=== PATIENT | female | born 1940 | race Caucasian/White ===

== ENCOUNTER 2021-05-17 16:03 | Day surgery (SDCO) | payer MEDICARE, OTHER ==
[~2021-05-17] VITALS: Ht 154.9 cm; Wt 73.1 kg
[~2021-05-17 16:03] MED LIST: ALLOPURINOL 10100 MG PO; ASPIRIN EC81 MG PO; BENTYL10 MG PO; CIPRO500 MG PO; ELAVIL25 MG PO; LASIX40 MG PO; METRONIDAZOLE500 MG PO; NABUMETONE750 MG PO; ONDANSETRON ODT4 MG SL; PRILOSEC20 MG PO; PRINIVIL10 MG PO; PRINIVIL20 MG PO; SYNTHROID88 MCG PO; ZOFRAN ODT4 MG SL; ZOFRAN4 MG PO
[2021-05-17 17:28] LABS: BASOPHIL 0.7 % (0-2); EOSINOPHIL 1.6 % (0-7); HCT 35.3 % (37.0-47.0); HGB 12.7 g/dl (12.5-16.0); LYMPHOCYTE 24.3 % (15-48); MCH 32.1 pg (25.0-31.0); MCV 89.1 fL (78.0-100.0); MONOCYTE 13.8 % (0-12); MPV 10.3 fL (6.0-9.5); NEUTROPHIL 59.3 % (41-80); NRBC 0; PLT 72 K/uL (150-400); RBC 3.96 M/uL (4.20-5.40); WBC 3.1 K/uL (4.0-10.5)
[2021-05-17 17:44] LABS: ALBUMIN 3.6 g/dL (3.4-5.0); BILIRUBIN - TOTAL 1.4 mg/dL (0.2-1.0); BUN/CREAT RATIO (CALC) 18.3 RATIO; CREATININE 0.71 mg/dL (0.51-0.95); GLOBULIN (CALCULATION) 3.7 g/dL; POTASSIUM 4.2 mmol/L (3.5-5.1); TOTAL PROTEIN 7.3 g/dL (6.4-8.2)
[2021-05-17 19:45] LABS: BILIRUBIN NEGATIVE (NEGATIVE); BLOOD NEGATIVE Ery/uL (NEGATIVE); CLARITY CLEAR (CLEAR); COLOR YELLOW (YELLOW); GLUCOSE (U) NORMAL (NORMAL); LEUKOCYTES NEGATIVE Leu/uL (NEGATIVE); NITRITE NEGATIVE (NEGATIVE); PROTEIN NEGATIVE (NEGATIVE); UROBILINOGEN 0.2 mg/dL (0.2-1.0); pH 6.5 (5.0-9.0)
[2021-05-17] MEDS ORDERED: CIPRO250 MG PO (21:35)
[2021-05-18 06:15] LABS: EOSINOPHIL 1.3 % (0-7); HCT 32.1 % (37.0-47.0); HGB 11.5 g/dl (12.5-16.0); LYMPHOCYTE 36.1 % (15-48); MCH 32.1 pg (25.0-31.0); MCHC 35.8 g/dL (32.0-36.0); MCV 89.7 fL (78.0-100.0); MONOCYTE 11.8 % (0-12); MPV 10.3 fL (6.0-9.5); NEUTROPHIL 49.8 % (41-80); NRBC 0; RBC 3.58 M/uL (4.20-5.40); WBC 3.1 K/uL (4.0-10.5)
[2021-05-18 06:19] LABS: PLT 71 K/uL (150-400)
[2021-05-18 06:23] LABS: INR 1.5 (0.9-1.2); PROTHROMBIN TIME 17.4 SECONDS (11.8-13.4); PTT 35.4 SECONDS (24.4-34.7)
[2021-05-18 06:35] LABS: BILIRUBIN - TOTAL 1.1 mg/dL (0.2-1.0); BUN/CREAT RATIO (CALC) 13.6 RATIO; CREATININE 0.66 mg/dL (0.51-0.95); GLOBULIN (CALCULATION) 3.6 g/dL; POTASSIUM 4.1 mmol/L (3.5-5.1); TOTAL PROTEIN 6.6 g/dL (6.4-8.2)
[2021-05-19 07:12] LABS: BASOPHIL 0.7 % (0-2); EOSINOPHIL 2.2 % (0-7); HCT 30.6 % (37.0-47.0); HGB 10.6 g/dl (12.5-16.0); LYMPHOCYTE 37.1 % (15-48); MCH 31.7 pg (25.0-31.0); MCHC 34.6 g/dL (32.0-36.0); MCV 91.6 fL (78.0-100.0); MONOCYTE 13.5 % (0-12); MPV 10.1 fL (6.0-9.5); NEUTROPHIL 46.5 % (41-80); NRBC 0; RBC 3.34 M/uL (4.20-5.40); RDW 13.3 % (11.5-14.0); WBC 2.7 K/uL (4.0-10.5)
[2021-05-19 07:14] LABS: PLT 64 K/uL (150-400)
[2021-05-19 07:21] LABS: INR 1.53 (0.9-1.2); PROTHROMBIN TIME 17.7 SECONDS (11.8-13.4); PTT 35.7 SECONDS (24.4-34.7)
[2021-05-19 07:39] LABS: ALBUMIN 2.8 g/dL (3.4-5.0); BUN/CREAT RATIO (CALC) 12.9 RATIO; CREATININE 0.7 mg/dL (0.51-0.95); GLOBULIN (CALCULATION) 3.3 g/dL; MAGNESIUM 1.6 mg/dL (1.8-2.4); TOTAL PROTEIN 6.1 g/dL (6.4-8.2)
== END 2021-05-19 13:25 | disposition home or self-care (01) ==
LOC: FER 16:03 → FMS 20:23
PROVIDERS: Emergency Medicine; Nurse Practitioner; ADMIT Internal Medicine
DX: K80.70 Calculus of gallbladder and bile duct without cholecystitis without obstruction (principal); K74.60 Unspecified cirrhosis of liver; K76.6 Portal hypertension; D61.818 Other pancytopenia; R16.1 Splenomegaly, not elsewhere classified; D68.9 Coagulation defect, unspecified; I10 Essential (primary) hypertension; E78.5 Hyperlipidemia, unspecified; M10.9 Gout, unspecified; E03.9 Hypothyroidism, unspecified; K21.9 Gastro-esophageal reflux disease without esophagitis; Z79.82 Long term (current) use of aspirin; Z79.899 Other long term (current) drug therapy; Z20.822 Contact with and (suspected) exposure to COVID-19; Z90.710 Acquired absence of both cervix and uterus; K80.20 Calculus of gallbladder without cholecystitis without obstruction
CPT/HCPCS: 36415; 71045; 76705; 80053; 80061; 81003; 82140; 83605; 83690; 83735; 84484; 85025; 85610; 85730; 86707; 86803; 93005; C9113; G0378; J2405; J3475; J7030; Q9967; U0002

== ENCOUNTER 2021-10-24 18:13 | Emergency (ER) | payer MEDICARE, OTHER ==
[~2021-10-24 18:13] MED LIST changes: +CIPRO250 MG PO
[2021-10-24 19:54] LABS: CORONAVIRUS 2019 SARS-COV-2 NEGATIVE (NEGATIVE); INFLUENZA A NAA NEGATIVE (NEGATIVE)
[2021-10-24 21:33] LABS: BASOPHIL 0.6 % (0-2); EOSINOPHIL 2.9 % (0-7); HCT 34.5 % (37.0-47.0); HGB 11.8 g/dl (12.5-16.0); LYMPHOCYTE 29.3 % (15-48); MCH 31.8 pg (25.0-31.0); MCHC 34.2 g/dL (32.0-36.0); MONOCYTE 14.1 % (0-12); MPV 10.1 fL (6.0-9.5); NEUTROPHIL 52.5 % (41-80); NRBC 0; RBC 3.71 M/uL (4.20-5.40); RDW 14.1 % (11.5-14.0); WBC 3.1 K/uL (4.0-10.5)
[2021-10-24 21:37] LABS: PLT 70 K/uL (150-400)
[2021-10-24 21:45] LABS: INR 1.36 (0.9-1.2); PROTHROMBIN TIME 16.1 SECONDS (11.8-13.4); PTT 34.6 SECONDS (24.4-34.7)
[2021-10-24 21:46] LABS: D-DIMER 0.51 ug/mLFEU (0.00-0.41)
[2021-10-24 22:05] LABS: BILIRUBIN - TOTAL 1.4 mg/dL (0.2-1.0); BUN/CREAT RATIO (CALC) 16.4 RATIO; C-REACTIVE PROTEIN 1.1 mg/dL (<=0.90); CREATININE 0.73 mg/dL (0.51-0.95); GLOBULIN (CALCULATION) 4.3 g/dL; MAGNESIUM 1.9 mg/dL (1.8-2.4); TOTAL PROTEIN 8.3 g/dL (6.4-8.2)
[2021-10-24 22:16] LABS: LACTIC ACID 1.5 mmol/L (0.4-1.9)
[2021-10-24 22:18] LABS: BILIRUBIN NEGATIVE (NEGATIVE); BLOOD NEGATIVE Ery/uL (NEGATIVE); CLARITY CLEAR (CLEAR); COLOR YELLOW (YELLOW); GLUCOSE (U) NORMAL (NORMAL); LEUKOCYTES NEGATIVE Leu/uL (NEGATIVE); NITRITE NEGATIVE (NEGATIVE); PROTEIN NEGATIVE (NEGATIVE); SPECIFIC GRAVITY 1.015 (1.001-1.030); UROBILINOGEN 0.2 mg/dL (0.2-1.0)
[2021-10-25] MEDS ORDERED: ZPAK PO (00:27)
[2021-10-25] MEDS ORDERED: AUGMENTIN 875-1 EACH PO (00:27)
== END 2021-10-25 01:03 | disposition home or self-care (01) ==
LOC: FER 18:13
PROVIDERS: Emergency Medicine; Nurse Practitioner Family
DX: J18.9 Pneumonia, unspecified organism (principal); I10 Essential (primary) hypertension; Z20.822 Contact with and (suspected) exposure to COVID-19; Z79.82 Long term (current) use of aspirin
CPT/HCPCS: 36415; 71250; 80053; 81003; 82550; 82728; 83605; 83615; 83735; 83880; 84145; 84484; 85025; 85379; 85610; 85730; 86140; 87040; 93005; 94640; 94664; J2543; J2930; U0002

== ENCOUNTER 2022-03-13 14:58 | Inpatient (IN) | payer MEDICARE, OTHER ==
[~2022-03-13] VITALS: Ht 154.9 cm; Wt 69.6 kg
[~2022-03-13 14:58] MED LIST changes: +AUGMENTIN 875-1 EACH PO; +ZPAK PO
[2022-03-13 18:01] LABS: BASOPHIL 0.8 % (0-2); EOSINOPHIL 2.4 % (0-7); HCT 33.7 % (37.0-47.0); LYMPHOCYTE 29.2 % (15-48); MCH 31.1 pg (25.0-31.0); MCHC 35.6 g/dL (32.0-36.0); MCV 87.3 fL (78.0-100.0); MONOCYTE 14.6 % (0-12); MPV 10.4 fL (6.0-9.5); NEUTROPHIL 52.7 % (41-80); NRBC 0; RBC 3.86 M/uL (4.20-5.40); RDW 14.6 % (11.5-14.0); WBC 3.7 K/uL (4.0-10.5)
[2022-03-13 18:04] LABS: BILIRUBIN NEGATIVE (NEGATIVE); BLOOD NEGATIVE Ery/uL (NEGATIVE); CLARITY CLEAR (CLEAR); COLOR YELLOW (YELLOW); GLUCOSE (U) NORMAL (NORMAL); LEUKOCYTES NEGATIVE Leu/uL (NEGATIVE); NITRITE NEGATIVE (NEGATIVE); PROTEIN NEGATIVE (NEGATIVE); SPECIFIC GRAVITY <=1.005 (1.001-1.030); UROBILINOGEN 0.2 mg/dL (0.2-1.0)
[2022-03-13 18:20] LABS: ALBUMIN 3.5 g/dL (3.4-5.0); BILIRUBIN - TOTAL 1.4 mg/dL (0.2-1.0); BUN/CREAT RATIO (CALC) 14.7 RATIO; CREATININE 0.75 mg/dL (0.51-0.95); GLOBULIN (CALCULATION) 3.9 g/dL; POTASSIUM 4.5 mmol/L (3.5-5.1); TOTAL PROTEIN 7.4 g/dL (6.4-8.2)
[2022-03-13 18:33] LABS: PLT 68 K/uL (150-400)
[2022-03-13 21:55] LABS: CORONAVIRUS 2019 SARS-COV-2 NEGATIVE (NEGATIVE); INFLUENZA A NAA NEGATIVE (NEGATIVE)
[2022-03-13] MEDS ORDERED: INDERAL20 MG PO (22:23)
[2022-03-13] MEDS ORDERED: PRINIVIL10 MG PO (22:27)
[2022-03-13] MEDS ORDERED: SYNTHROID75 MCG PO (22:27)
[2022-03-13] MEDS ORDERED: RELAFEN750 MG PO (22:28)
[2022-03-13] MEDS ORDERED: LACTULOSE10 G/15 ML PO (22:30)
[2022-03-13] MEDS ORDERED: ELAVIL25 MG PO (22:31)
[2022-03-13] MEDS ORDERED: PRILOSEC20 MG PO (22:31)
[2022-03-13] MEDS ORDERED: ALLOPURINOL100 MG PO (22:32)
--- NOTE | 2022-03-14 04:53 | NUR ---
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 NEW ORDER RECIEVED FOR BOLUS 500CC NS INFUSED AT 999CC/HR, PATIENT PLACED IN [place] POSITION ON B/P MONITOR X15 MINUTES STAFF REMAINED WITH PATIENT UNTIL STABLE, NOTED INCREASE CONFUSION, MARY, SPEECH GARBLED. AFTER INFUSION PATIENT B/P 90/52 P 58.SPEECH CLEAR, STATES FEELS BETTER.
--- NOTE | 2022-03-14 05:56 | NUR ---
B/P 121/59 P 65 BACK AT BASELINE.
[2022-03-14 06:33] LABS: BASOPHIL 0.9 % (0-2); EOSINOPHIL 1.8 % (0-7); HCT 31.8 % (37.0-47.0); HGB 11.4 g/dl (12.5-16.0); LYMPHOCYTE 18.6 % (15-48); MCH 31.8 pg (25.0-31.0); MCHC 35.8 g/dL (32.0-36.0); MCV 88.6 fL (78.0-100.0); MONOCYTE 14.4 % (0-12); MPV 10.7 fL (6.0-9.5); NEUTROPHIL 63.7 % (41-80); NRBC 0; RBC 3.59 M/uL (4.20-5.40); RDW 14.6 % (11.5-14.0); WBC 3.3 K/uL (4.0-10.5)
[2022-03-14 06:50] LABS: BAND 1 % (0-10); LYMPHOCYTE(M) 28 % (15-48); MONOCYTE(M) 3 % (0-12); NEUTROPHILS(M) 68 % (41-80); PLT 62 K/uL (150-400)
[2022-03-14 06:51] LABS: PLATELET ESTIMATE DECREASED; PLATELET MORPHOLOGY NORMAL
[2022-03-14 06:58] LABS: ALBUMIN 3.3 g/dL (3.4-5.0); BILIRUBIN - TOTAL 1.8 mg/dL (0.2-1.0); BUN/CREAT RATIO (CALC) 18.3 RATIO; CREATININE 0.71 mg/dL (0.51-0.95); GLOBULIN (CALCULATION) 3.5 g/dL; POTASSIUM 3.9 mmol/L (3.5-5.1); TOTAL PROTEIN 6.8 g/dL (6.4-8.2)
--- NOTE | 2022-03-14 15:47 | NUR ---
03/14 Ms. Bonner lives at home with her spouse. She has a rw, 3in1, and s. chair. A referral was made to [facility] for nursing per patient request.
[2022-03-14 15:51] LABS: BUN/CREAT RATIO (CALC) 16.4 RATIO; CREATININE 0.73 mg/dL (0.51-0.95)
== END 2022-03-14 17:20 | disposition home or self-care (01) | DRG 641 ==
LOC: FER 14:58 → FMS 20:49
PROVIDERS: Internal Medicine; Nurse Practitioner; Nurse Practitioner Family; ADMIT Family Medicine
DX: E87.1 Hypo-osmolality and hyponatremia (principal); K76.6 Portal hypertension; E86.1 Hypovolemia; E78.5 Hyperlipidemia, unspecified; Z66 Do not resuscitate; I11.9 Hypertensive heart disease without heart failure; K75.81 Nonalcoholic steatohepatitis (NASH); I95.1 Orthostatic hypotension; D69.6 Thrombocytopenia, unspecified; G25.81 Restless legs syndrome; K21.9 Gastro-esophageal reflux disease without esophagitis; F41.9 Anxiety disorder, unspecified; M10.9 Gout, unspecified; W19.XXXA Unspecified fall, initial encounter; Z90.710 Acquired absence of both cervix and uterus; Z83.79 Family history of other diseases of the digestive system; Z79.82 Long term (current) use of aspirin; Z98.890 Other specified postprocedural states; Z79.899 Other long term (current) drug therapy
CPT/HCPCS: 36415; 72128; 72131; 80048; 80053; 81003; 82140; 83036; 83935; 84300; 84443; 84484; 85025; 93005; 94010; 97162; 97166; 97530-GP; 97535; J7030; J7040; U0002